=== PATIENT | male | born 1980 | race Caucasian/White ===

== ENCOUNTER 2016-10-31 20:31 | Emergency (ER) | payer SELFPAY ==
[2016-10-31] MEDS ORDERED: HYDROmorphONE/DILAUDID 1 MG/ML SYR ONE (20:56)
[2016-10-31] MEDS ORDERED: ONDANSETRON 4 MG/2 ML VIAL ONE (20:56)
--- NOTE | 2016-10-31 21:08 | CPEKG ---
Heart Rate: 44 RR Interval: 1364 P-R Interval: 143 QRSD Interval: 108 QT Interval: 504 QTC Interval: 432 P [place]: 21 QRS [place]: 78 T Wave [place]: 38 EKG Severity - OTHERWISE NORMAL ECG - EKG Impression: SINUS BRADYCARDIA Electronically Signed By: Mina Looney 01-Nov-2016 00:00:00
[2016-10-31] MEDS ORDERED: ONDANSETRON 4 MG/2 ML VIAL IVP ONE (21:10)
[2016-10-31] MEDS ORDERED: HYDROmorphONE/DILAUDID 1 MG/ML SYR IVP ONE (21:10)
--- NOTE | 2016-10-31 21:16 | EDPHY ---
H & P Stated Complaint: R flank pain Source: Patient Exam Limitations: No limitations - Personal History Current Tetanus/Diphtheria Vaccine: Unsure Current Tetanus Diphtheria and Acellular Pertussis (TDAP): Unsure - Medical/Surgical History Hx Asthma: No Hx Chronic Respiratory Disease: No Hx Diabetes: No Hx Cardiac Disease: No Hx Renal Disease: No Hx Cirrhosis: No Hx Alcoholism: No Hx HIV/AIDS: No Hx Splenectomy or Spleen Trauma: No Other PMH: L clavicle fx, - Family History Significant Family History: No pertinent family hx - Social History Smoking Status: Never smoked Alcohol Use: None Time Seen by Provider: 10/31/16 21:07 HPI/ROS: CHIEF COMPLAINT: Severe right flank pain, vomiting HISTORY OF PRESENT ILLNESS: The patient presents to the emergency department with severe right flank pain and vomiting. The patient's symptoms began acutely 2 hours prior to arrival. The patient denies prior history of the symptoms. He denies hematuria or dysuria. The patient denies prior history of kidney stones or abdominal surgery. The patient denies any recent infectious symptoms. He has no complaints of headache, cough, rash or extremity pain. REVIEW OF SYSTEMS: A comprehensive 10 point review of systems is otherwise negative aside from elements mentioned in the history of present illness. (Mina Looney) - Physical Exam Exam: General Appearance: Uncomfortable, diaphoretic, moderate distress secondary to pain Eyes: Pupils equal and round no pallor or injection ENT, Mouth: Mucous membranes moist Respiratory: There are no retractions, lungs are clear to auscultation Cardiovascular: Regular rate and rhythm Gastrointestinal: Abdomen is soft and nontender, no masses, bowel sounds normal Back: Right CVA tenderness Genitourinary exam: Normal testicular lie, no testicular tenderness Neurological: A&O, normal motor function, normal sensory exam, normal cranial nerves Skin: Warm and dry, no rashes Musculoskeletal: Neck is supple nontender Extremities: symmetrical, full range of motion (Mina Looney) Constitutional: Initial Vital Signs Temperature (C) 36.7 C 10/31/16 20:45 Heart Rate 50 L 10/31/16 20:45 Respiratory Rate 16 10/31/16 20:45 Blood Pressure 172/90 H 10/31/16 20:45 O2 Sat (%) 97 10/31/16 20:45 O2 Delivery Mode Room Air Allergies/Adverse Reactions: No Known Allergies Allergy (Verified 10/31/16 20:45) Home Medications: Medication Instructions Recorded Miscellaneous Medical Supply [NO 1 ea [facility] [place] 08/20/12 HOME MEDS] Medical Decision Making - Diagnostics Imaging: CT Scan of the Urinary Tract (Abdomen and Pelvis Without Contrast) Clinical Indications: Right-sided flank pain Findings: Abdomen: There is a 4 mm calculus present in the distal right ureter just proximal to the UVJ, with associated mild to moderate right hydronephrosis. The left kidney is normal in appearance. Pelvis: No pelvic masses are seen. There is no free fluid seen. Impression: 4 mm distal right ureteral calculus with associated right hydronephrosis. Images independently reviewed by myself and discussed with radiologist Dr. Mina Carias. (Mina Looney) ED Course/Re-evaluation: The patient presents to the ED with diaphoresis, severe right flank pain and vomiting. The patient had an IV established and was placed on a shelter monitor. The patient was noted to have a sinus bradycardia with normal blood pressure. He had an IV dose of Dilaudid 1 mg and 4 mg of IV Zofran. Given the patient's severe flank pain, a CT scan of the abdomen and pelvis has been ordered. The patient was noted to have a normal creatinine. He received [address] abdomen pelvis does demonstrate a 4 mm distal right ureteral stone with mild hydronephrosis. The patient received oral Flomax at 9:40 p.m.. The patient was re-evaluated by myself at 10:00 p.m. and is feeling much better. He is comfortable being discharged home. He will be given prescriptions for Zofran, Flomax and Percocet. He is referred to our on-call radiologist. The patient is discharged home with customary aftercare instructions and return precautions. (Mina Looney) Differential Diagnosis: Differential diagnosis considered includes ureterolithiasis, nephrolithiasis, pyelonephritis, myofascial strain, testicular torsion (Mina Looney) - Data Points Laboratory Results: Laboratory Results 10/31/16 20:50 10/31/16 20:50 10/31/16 10/31/16 22:00 20:50 WBC 9.48 10^3/uL (3.80-9.50) RBC 5.40 10^6/uL (4.40-6.38) Hgb 17.2 g/dL (13.7-17.5) Hct 50.0 % (40.0-51.0) MCV 92.6 fL (81.5-99.8) MCH 31.9 pg (27.9-34.1) MCHC 34.4 g/dL (32.4-36.7) RDW 13.0 % (11.5-15.2) Plt Count 267 10^3/uL (150-400) MPV 9.9 fL (8.7-11.7) Neut % (Auto) 51.7 % (39.3-74.2) Lymph % (Auto) 39.1 % (15.0-45.0) [place] % (Auto) 6.9 % (4.5-13.0) Eos % (Auto) 1.2 % (0.6-7.6) Baso % (Auto) 0.8 % (0.3-1.7) Nucleat RBC Rel Count 0.0 % (0.0-0.2) Absolute Neuts (auto) 4.90 10^3/uL (1.70-6.50) Absolute Lymphs (auto) 3.71 H 10^3/uL (1.00-3.00) Absolute Monos (auto) 0.65 10^3/uL (0.30-0.80) Absolute Eos (auto) 0.11 10^3/uL (0.03-0.40) Absolute Basos (auto) 0.08 10^3/uL (0.02-0.10) Absolute Nucleated RBC 0.00 10^3/uL (0-0.01) Immature Gran % 0.3 % (0.0-1.1) Immature Gran # 0.03 10^3/uL (0.00-0.10) Sodium 140 mEq/L (134-144) Potassium 3.5 mEq/L (3.5-5.2) Chloride 104 mEq/L (97-110) Carbon Dioxide 23 mEq/l (22-31) Anion Gap 13 mEq/L (8-16) BUN 23 mg/dL (7-23) Creatinine 1.0 mg/dL (0.7-1.3) Estimated GFR > 60 Glucose 115 H mg/dL (70-100) Calcium 9.7 mg/dL (8.5-10.4) Urine Color YELLOW Urine Appearance HAZY Urine pH 5.0 (5.0-7.5) Ur Specific [place] 1.027 (1.002-1.030) Urine Protein NEGATIVE (NEGATIVE) Urine Ketones 1+ H (NEGATIVE) Urine Blood 1+ H (NEGATIVE) Urine Nitrate NEGATIVE (NEGATIVE) Urine Bilirubin NEGATIVE (NEGATIVE) Urine Urobilinogen NEGATIVE EU (0.2-1.0) Ur Leukocyte Esterase NEGATIVE (NEGATIVE) Urine RBC 15-25 H /hpf (0-3) Urine WBC 3-5 H /hpf (0-3) Ur Epithelial Cells TRACE /lpf (NONE-1+) Calcium Oxalate Crystal PRESENT /hpf (NONE-1+) Urine Mucus 1+ /lpf (NONE-1+) Ur Culture Indicated? NOT INDICATED (NI) Urine Glucose NEGATIVE (NEGATIVE) Medications Given: Discontinued Medications Hydromorphone HCl (Dilaudid) 0.5 mg IVP EDNOW ONE Stop: 10/31/16 21:11 Last Admin: 10/31/16 21:10 Dose: 0.5 mg Ketorolac Tromethamine (Toradol) 30 mg IVP EDNOW ONE Stop: 10/31/16 21:31 Last Admin: 10/31/16 21:50 Dose: 30 mg Ondansetron HCl (Zofran) 4 mg IVP EDNOW ONE Stop: 10/31/16 21:11 Last Admin: 10/31/16 21:10 Dose: 4 mg Ondansetron HCl (Zofran Odt 4 Mg Prepack#2) 1 btl TAKEHOME EDNOW ONE Stop: 10/31/16 22:45 Last Admin: 10/31/16 22:50 Dose: 1 btl Oxycodone/Acetaminophen (Percocet 5/325mg Prepack#4) 1 btl TAKEHOME EDNOW ONE Stop: 10/31/16 22:45 Last Admin: 10/31/16 22:49 Dose: 1 btl Tamsulosin HCl (Flomax) 0.4 mg PO EDNOW ONE Stop: 10/31/16 21:39 Last Admin: 10/31/16 21:50 Dose: 0.4 mg Departure - Departure Disposition: Home, Routine, Self-Care Clinical Impression: Kidney stone Condition: Good Instructions: Kidney Stones (ED) Additional Instructions: 1. Take Ibuprofen or Motrin 600 mg by mouth three times a day. 2. Percocet as needed for severe pain 3. Flomax as directed 4. Zofran as needed for nausea 5. Strain urine as directed 6. Return to the Emergency Department for intractable pain, fever or vomiting. 7. Followup with the urologist you have been referred to for unimproved symptoms. Referrals: Prieto Beltran MD [Medical Doctor] - As per Instructions
[2016-10-31 21:18] LABS: % IMMATURE GRANULYOCYTES 0.3 % (0.0-1.1); ABSOLUTE IMMATURE GRANULOCYTES 0.03 10^3/uL (0.00-0.10); ADD DIFF? NO; ADD MORPH? NO; ADD SCAN? NO; ATYPICAL LYMPHOCYTE FLAG 20 (0-99); FRAGMENT RBC FLAG 0 (0-99); HEMOGLOBIN 17.2 g/dL (13.7-17.5); LEFT SHIFT FLG 0 (0-99); LIPEMIA HEMOLYSIS FLAG 90 (0-99); MEAN CELL HEMOGLOBIN 31.9 pg (27.9-34.1); MEAN CELL HEMOGLOBIN CONCENTR. 34.4 g/dL (32.4-36.7); MEAN CELL VOLUME 92.6 fL (81.5-99.8); MEAN PLATELET VOLUME 9.9 fL (8.7-11.7); PLATELET CLUMPS FLAG 0 (0-99); PLATELET COUNT 267 10^3/uL (150-400)
[2016-10-31 21:25] LABS: ANION GAP 13 mEq/L (8-16); CALCIUM 9.7 mg/dL (8.5-10.4); CARBON DIOXIDE 23 mEq/l (22-31); CHLORIDE 104 mEq/L (97-110); GLOMERULAR FILTRATION RATE > 60; GLUCOSE 115 mg/dL (70-100); POTASSIUM 3.5 mEq/L (3.5-5.2); SODIUM 140 mEq/L (134-144)
[2016-10-31] MEDS ORDERED: KETOROLAC 30 MG/1 ML SDV IVP ONE (21:30)
--- NOTE | 2016-10-31 21:33 | CT ---
CT Scan of the Urinary Tract (Abdomen and Pelvis Without Contrast) Clinical Indications: Right-sided flank pain Technique: Multidetector helical CT imaging was performed from the kidneys to the urinary bladder wi thout contrast. Findings: Abdomen: There is a 4 mm calculus present in the distal right ureter just proximal to the UVJ, with associated mild to moderate right hydronephrosis. The left kidney is normal in appearance. Pelvis: No pelvic masses are seen. There is no free fluid seen. Impression: 4 mm distal right ureteral calculus with associated right hydronephrosis. Results called to Dr. Ernie Jaime at 9:30 PM. Attention: This CT examination is specifically designed to evaluate patients who are clinically susp ected of having acute obstructive uropathy. This examination does not use radiographic contrast, and as such, provides only a limited evaluation of the abdomen, pelvis and retroperitoneum. If there i s further clinical suspicion for pathological conditions other than obstructive uropathy, a complete CT evaluation of the abdomen and pelvis utilizing intravenous, oral, and rectal contrast should be co nsidered.
[2016-10-31] MEDS ORDERED: TAMSULOSIN HCL 0.4 MG CAP PO ONE (21:38)
[2016-10-31 22:10] LABS: COLOR YELLOW; LEUKOCYTE ESTERASE,URINE NEGATIVE (NEGATIVE); NITRITE,URINE NEGATIVE (NEGATIVE)
[2016-10-31 22:15] LABS: MUCUS 1+ /lpf (NONE-1+); RBC,URINE 15-25 /hpf (0-3)
[2016-10-31] MEDS ORDERED: OXYCODONE/APAP 5/325MG PREPACK#4 BTL TAKEHOME ONE (22:44)
[2016-10-31] MEDS ORDERED: ONDANSETRON 4MG PREPACK#2 BTL TAKEHOME ONE (22:44)
[2016-10-31 23:00] VITALS: BP 136/66; PULSE 85; RESP 14; TEMP 97.9; O2SAT 95
== END 2016-10-31 23:00 | disposition home or self-care (01) ==
DX: N20.0 Calculus of kidney (principal)
CPT/HCPCS: 96374; J1170; J1885; J2405